=== PATIENT | female | born 1965 | race Caucasian/White ===

== ENCOUNTER 2020-11-08 10:36 | Inpatient (IN) | payer BC ==
[2020-11-08] VITALS (22 sets, daily range): BP systolic 126–189; BP diastolic 58–97
[~2020-11-08] VITALS: Ht 172.7 cm; Wt 122.9 kg
[2020-11-08] MEDS ORDERED: famotidine 20mg tablet PO ONE (10:55)
[2020-11-08] MEDS ORDERED: ceFAZolin inj. 3,000 MG in normal saline 100ml IV soln 100 ML IV ONE (11:08)
[2020-11-08] MEDS ORDERED: ALBU17AE26 INH (11:12)
[2020-11-08] MEDS ORDERED: OXYC5CAP19 PO (11:12)
[2020-11-08] MEDS ORDERED: ringers solution, lacted 1,000 ML IV SCH ×2 (11:12→14:45)
[2020-11-08] MEDS ORDERED: tranexamic acid 650mg tablet PO ONE (11:15)
[2020-11-08] MEDS ORDERED: morphine 4 MG/ML inj SYRINge IV ONE (11:35)
[2020-11-08 12:33] LABS: BASOPHILS % (AUTO) 0.1 % (0-1); EOSINOPHILS % (AUTO) 0.2 % (0-6); LYMPHOCYTES # (AUTO) 1.2 X10'3 (1.1-4.8); LYMPHOCYTES % (AUTO) 9.9 % (21-51); MEAN CORPUSCULAR HEMOGLOBIN 29.7 PG (27.0-31.0); MEAN CORPUSCULAR HGB CONC 33.9 g/dL (33.0-36.5); MEAN CORPUSCULAR VOLUME 87.7 FL (78-98); MEAN PLATELET VOLUME 7.2 FL (7.4-10.4); MONOCYTES # (AUTO) 0.9 X10'3 (0-0.9); MONOCYTES % (AUTO) 7.7 % (2-12); NEUTROPHILS # (AUTO) 9.9 X10'3 (1.8-7.7); NEUTROPHILS % (AUTO) 82.1 % (42-75); PRE OP HEMATOCRIT 36.8 % (35.0-45.0); PRE OP HEMOGLOBIN 12.5 g/dL (12.0-16.0); PRE OP PLATELET COUNT 285 X10'3 (140-440); RED CELL DISTRIBUTION WIDTH 14.6 % (11.5-14.5)
[2020-11-08] MEDS ORDERED: succinylcholine 20mg/ml inj IV ONE (12:42)
[2020-11-08] MEDS ORDERED: propofol inj 20 ML IV ONE (12:42)
[2020-11-08] MEDS ORDERED: LIDOcaine 2% (20mg/ml) 5ml vial ONE (12:42)
[2020-11-08] MEDS ORDERED: ROPIVAcaine 0.5% (5mg/ml) 30ml vial ONE ×2 (12:42→12:56)
[2020-11-08] MEDS ORDERED: ondansetron/PF 4mg/2ml inj ONE (12:42)
[2020-11-08 12:43] LABS: ALBUMIN 3.4 G/DL (3.4-5.0); ALBUMIN/GLOBULIN RATIO 0.8 (1.1-1.5); ALKALINE PHOSPHATASE 65 IU/L (46-116); BLOOD UREA NITROGEN 14 MG/DL (7-18); CALCIUM 8.7 MG/DL (8.5-10.1); CHLORIDE 104 MMOL/L (99-107); CREATININE 0.61 MG/DL (0.40-0.90); PRE OP ALT 31 U/L (30-65); PRE OP ANION GAP 7 (8-16); PRE OP AST 17 U/L (10-37); PRE OP BILIRUB, TOTAL 0.8 MG/DL (0.0-1.0); PRE OP GLUCOSE 127 MG/DL (70-104); PRE OP POTASSIUM 3.6 MMOL/L (3.4-5.1); PRE OP SODIUM 138 MMOL/L (135-145); TOTAL CARBON DIOXIDE 27.3 MMOL/L (24-32); TOTAL PROTEIN 7.6 G/DL (6.4-8.2); eGFR > 90 ML/MIN
[2020-11-08] MEDS ORDERED: cloNIDine hcl/PF 100mcg/ml inj ONE (12:43)
[2020-11-08] MEDS ORDERED: ketorolac trometh. 30mg/ml inj. ONE (12:56)
[2020-11-08] MEDS ORDERED: morphine 4 MG/ML inj SYRINge IV STA (13:11)
[2020-11-08] MEDS ORDERED: fentaNYL/PF 50MCG/1 ML 2ML syringe ONE ×2 (13:57→15:54)
[2020-11-08] MEDS ORDERED: dexamethasone sod phosphate 4mg/ml inj. ONE (14:21)
[2020-11-08] MEDS ORDERED: morphine 4 MG/ML inj SYRINge IV PRN (14:45)
[2020-11-08] MEDS ORDERED: fentaNYL/PF 50MCG/1 ML 2ML syringe IV PRN ×2 (14:45)
[2020-11-08] MEDS ORDERED: morphine 2 MG/ML inj. syringe IV PRN (14:45)
[2020-11-08] MEDS ORDERED: labetalol 20mg/4ml (5mg/ml) syringe IV PRN (14:45)
[2020-11-08] MEDS ORDERED: ondansetron/PF 4mg/2ml inj IV PRN ×2 (14:45→16:25)
[2020-11-08] MEDS ORDERED: hydrALAZINE 20mg/ml inj. IV PRN (14:45)
[2020-11-08] MEDS ORDERED: ROPIVAcaine 0.2% (10 MG/5 ML) BOLUS INJECTION INTERSCALE PRN (14:45)
[2020-11-08] MEDS ORDERED: ePHEDrine 50MG/ML INJ. ONE (15:06)
[2020-11-08] MEDS ORDERED: non-formulary drug (Oxycodone HCl 1 CAP) PO PRN (16:25)
[2020-11-08] MEDS ORDERED: acetaminophen 325mg tablet PO PRN (16:25)
[2020-11-08] MEDS ORDERED: diphenhydrAMINE 25mg capsule PO PRN ×2 (16:25)
[2020-11-08] MEDS ORDERED: HYDROmorphone inj. 0.5 MG/0.5 ML DISP.SYRIN IV PRN (16:25)
[2020-11-08] MEDS ORDERED: oxyCODONE IR 5mg (immed. release) tablet PO PRN (16:25)
[2020-11-08] MEDS ORDERED: HYDROmorphone 1 mg/ml syringe IV PRN (16:25)
[2020-11-08] MEDS ORDERED: magnesium hydroxide 30ml (MOM) UD suspension PO PRN (16:25)
[2020-11-08] MEDS ORDERED: bisacodyl 10mg suppository rectal RC PRN (16:25)
[2020-11-08] MEDS: ROPIVAcaine 0.2%/PF PUMP/bolus 545 ML INTERSCALE SCH (17:13)
--- NOTE | 2020-11-08 19:06 | NUR ---
Report called to receiving nurse. Transferred via BED ON s SENT W/PT TO ROOM 4023 A. COLDFUSION AT BEDSIDE TO RECEIVE PT, BLL, CALL LIGHT GIVEN, SIDE RAILS UP X 2. Special Issues communicated to receiving nurse. YES. Addendum: 11/08/20 at 1917 by Nuzhat Snider RN Amended: Links added.
[2020-11-08] MEDS: acetaminophen 325mg tablet PO SCH (19:54)
[2020-11-08] MEDS ORDERED: vancomycin/NS 1 GM ADD-VANTAGE 250 ML IV SCH (20:00)
[2020-11-08] MEDS ORDERED: sennosides 8.6mg tablet PO SCH (21:00)
[2020-11-08] MEDS: potassium cl 20mEq in 1/2 NS 1,000 ML IV SCH ×2 (21:27→21:35)
[2020-11-08] MEDS: albuterol 2.5 MG/3 ML nebule NEB PRN (21:47)
[2020-11-08] MEDS: oxyCODONE IR 5mg (immed. release) tablet PO PRN (22:37)
--- NOTE | 2020-11-09 | NUR ---
Pts called earlier this evening very upset about the care his was receiving. Apparently, she had texted with her daughter, who was then talking to the dad and he called the nurses station. He was angry that she said she had pushed the call light and it took "45 mins for someone to help me and I ended up peeing on the bed." I spoke with him for a few minutes. I do not know how long the call light was actually on, but I doubt it was 45 mins. During that time, a rapid response was happening at the end of the mccall in the [facility] room and many RNs were assisting. An aide from another unit was called up to help answer lights and I was in the room with one of my other 4 patients when the aide came in and said that Regina had just "chewed her out and refused to be helped by anyone else besides her nurse." I went to the room as soon as I was able to and helped her to the toilet. She didn't realize that she had wet the bed a little and I said not to worry, it happened all the time and went ahead and changed her linens while she was in the bathroom. She was clearly embarrassed. Afterwards, she started sobbing and said she was sorry for the way she acted and she wanted to apologize to the aide, but the aide had already returned to her unit. She said this was "out of character for her and it must be a result of the meds from surgery." She called her and said he "shouldn't have called the nurses station and that she was a big girl and could take care of herself." Pt was very anxious all night long. She did not want to fall asleep because she was worried "she might miss something." She used the call light several times an hour and had a hard time getting comfortable in bed. She was given pain meds for chronic back pain as well as the On Q meds for shoulder pain. She seemed to be ok when I was talking with her one on one, but would get all riled up when talking/texting with family.
[2020-11-09] MEDS: ceFAZolin/D5W- 1GM premix 50 ML IV SCH ×2 (01:03→08:16)
[2020-11-09 02:00] VITALS: BP 138/69
[2020-11-09] MEDS: acetaminophen 325mg tablet PO SCH ×2 (02:00→08:15)
[2020-11-09] MEDS: oxyCODONE IR 5mg (immed. release) tablet PO PRN ×2 (02:01→11:38)
[2020-11-09 06:00] VITALS: BP 140/58
[2020-11-09 06:08] LABS: BASOPHILS % (AUTO) 0 % (0-1); EOSINOPHILS % (AUTO) 0 % (0-6); HEMATOCRIT 32.8 % (35.0-45.0); HEMOGLOBIN 10.9 g/dl (12.0-16.0); LYMPHOCYTES # (AUTO) 0.8 X10'3 (1.1-4.8); LYMPHOCYTES % (AUTO) 6.1 % (21-51); MEAN CORPUSCULAR HEMOGLOBIN 29.6 PG (27.0-31.0); MEAN CORPUSCULAR HGB CONC 33.4 g/dL (33.0-36.5); MEAN CORPUSCULAR VOLUME 88.6 FL (78-98); MEAN PLATELET VOLUME 7.2 FL (7.4-10.4); MONOCYTES % (AUTO) 6.9 % (2-12); NEUTROPHILS # (AUTO) 12.1 X10'3 (1.8-7.7); PLATELET COUNT 274 X10'3 (140-440); RED CELL DISTRIBUTION WIDTH 14.7 % (11.5-14.5); WHITE BLOOD COUNT 13.9 X10'3 (4.5-11.0)
[2020-11-09 06:27] LABS: ANION GAP 7 (8-16); CHLORIDE 104 MMOL/L (99-107); POTASSIUM 3.7 MMOL/L (3.5-5.1); SODIUM 139 MMOL/L (135-145); TOTAL CARBON DIOXIDE 27.6 MMOL/L (24-32)
[2020-11-09] MEDS ORDERED: aspirin 325mg tablet PO SCH (08:30)
[2020-11-09] MEDS: albuterol 2.5 MG/3 ML nebule NEB PRN (08:47)
[2020-11-09 10:00] VITALS: BP 179/77
[2020-11-09] MEDS ORDERED: OXYC-658 PO (11:26)
[2020-11-09] MEDS ORDERED: cyclobenzaprine 10mg tablet PO STA (12:00)
[2020-11-09] MEDS ORDERED: ketorolac trometh. 30mg/ml inj. IV ONE (12:25)
[2020-11-09] MEDS ORDERED: CYCL-392 PO (12:34)
[2020-11-09] MEDS ORDERED: oxyCODONE IR 5mg (immed. release) tablet PO ONE (12:55)
[2020-11-09] MEDS ORDERED: cyclobenzaprine 10mg tablet PO ONE (14:45)
[2020-11-09] MEDS: ROPIVAcaine 0.2%/PF PUMP/bolus 545 ML INTERSCALE SCH (15:48)
[2020-11-10] MEDS ORDERED: acetaminophen 325mg tablet PO PRN (16:25)
== END 2020-11-09 16:05 | disposition home or self-care (01) | DRG 483 ==
LOC: PAS 10:36 → ORTHO 4S 16:22
PROVIDERS: ADMIT Orthopaedic Surgery; ATTEND Orthopaedic Surgery
PROC: 3E0T3BZ Introduction of Anesthetic Agent into Peripheral Nerves and Plexi, Percutaneous Approach (ICD-10-PCS; 2020-11-08)
PROC: 3E0T33Z Introduction of Anti-inflammatory into Peripheral Nerves and Plexi, Percutaneous Approach (ICD-10-PCS; 2020-11-08)
PROC: 0RRJ00Z Replacement of Right Shoulder Joint with Reverse Ball and Socket Synthetic Substitute, Open Approach (ICD-10-PCS; principal; 2020-11-08 13:52)
DX: S42.241A 4-part fracture of surgical neck of right humerus, initial encounter for closed fracture (principal); D62 Acute posthemorrhagic anemia; M19.011 Primary osteoarthritis, right shoulder; M75.21 Bicipital tendinitis, right shoulder; S42.291A Other displaced fracture of upper end of right humerus, initial encounter for closed fracture; W18.39XA Other fall on same level, initial encounter; Y93.89 Activity, other specified; Y92.89 Other specified places as the place of occurrence of the external cause; Y99.8 Other external cause status; Z20.822 Contact with and (suspected) exposure to COVID-19
CPT/HCPCS: 36415; 73030; 80051; 80053; 85025; 87081; 87426; 93005; 94640; 94760; 97110; 97161; 97530; G0378; J0330; J0690; J0735; J1100; J1885; J2001; J2270; J2405; J2704; J2795; J3010; J3370; J3480; J7120

== ENCOUNTER 2020-11-18 13:48 | Emergency (ER) | payer BC ==
[~2020-11-18] VITALS: Ht 170.2 cm; Wt 122.7 kg
[~2020-11-18 13:48] MED LIST: ALBU17AE26 INH; CYCL-392 PO; OXYC-658 PO
[2020-11-18 14:04] VITALS: BP 175/91
[2020-11-18 14:37] LABS: BASOPHILS % (AUTO) 0.5 % (0-1); EOSINOPHILS # (AUTO) 0.1 X10'3 (0-0.9); EOSINOPHILS % (AUTO) 1.7 % (0-6); HEMATOCRIT 35.8 % (35.0-45.0); HEMOGLOBIN 11.8 g/dl (12.0-16.0); MEAN CORPUSCULAR HEMOGLOBIN 29.4 PG (27.0-31.0); MEAN CORPUSCULAR HGB CONC 33.1 g/dL (33.0-36.5); MEAN PLATELET VOLUME 6.5 FL (7.4-10.4); MONOCYTES # (AUTO) 0.5 X10'3 (0-0.9); MONOCYTES % (AUTO) 7.3 % (2-12); NEUTROPHILS # (AUTO) 4.9 X10'3 (1.8-7.7); NEUTROPHILS % (AUTO) 75.5 % (42-75); PLATELET COUNT 363 X10'3 (140-440); RED BLOOD COUNT 4.03 X10'6 (4.20-5.60); RED CELL DISTRIBUTION WIDTH 14.6 % (11.5-14.5); WHITE BLOOD COUNT 6.5 X10'3 (4.5-11.0)
[2020-11-18 14:51] LABS: D-DIMER 2.87 MG/L FEU (0-0.50)
[2020-11-18 15:02] LABS: ALANINE AMINOTRANSFERASE 29 U/L (12-78); ALBUMIN 3.3 G/DL (3.4-5.0); ALBUMIN/GLOBULIN RATIO 0.7 (1.1-1.5); ALKALINE PHOSPHATASE 72 IU/L (46-116); ANION GAP 8 (8-16); ASPARTATE AMINO TRANSFERASE 14 U/L (10-37); BILIRUBIN,TOTAL 0.5 MG/DL (0.1-1.0); BLOOD UREA NITROGEN 10 MG/DL (7-18); BUN/CREATININE RATIO 12.7 (6.6-38.0); CALCIUM 8.6 MG/DL (8.5-10.1); CHLORIDE 105 MMOL/L (99-107); CREATININE 0.79 MG/DL (0.40-0.90); GLUCOSE 122 MG/DL (70-104); POTASSIUM 4.2 MMOL/L (3.5-5.1); SODIUM 142 MMOL/L (135-145); TOTAL CARBON DIOXIDE 29.3 MMOL/L (24-32); TOTAL PROTEIN 7.8 G/DL (6.4-8.2); eGFR 76 ML/MIN
[2020-11-18] MEDS ORDERED: iohexol 350MG/ML 100ml bottle IV ONE (17:32)
[2020-11-18 17:40] LABS: CLARITY,URINE CLEAR (Clear); COLOR,URINE YELLOW (Yellow); GLUCOSE, URINE NEGATIVE (Neg); KETONES,URINE NEGATIVE (Neg); LEUKOCYTE ESTERASE ,URINE NEGATIVE (Neg); NITRITES, URINE NEGATIVE (Neg); OCCULT BLOOD,URINE NEGATIVE (Neg); PH,URINE 7.5 (4.8-8.0); PROTEIN,URINE NEGATIVE (Neg)
[2020-11-18 17:41] LABS: UA COLLECTION TYPE CLN CATCH MIDSTREAM
== END 2020-11-18 18:32 | disposition home or self-care (01) ==
LOC: ER 14:00
DX: R06.02 Shortness of breath (principal); R30.0 Dysuria; R05 Cough; Z96.611 Presence of right artificial shoulder joint; J45.909 Unspecified asthma, uncomplicated; Z98.890 Other specified postprocedural states; Z91.040 Latex allergy status; Z79.899 Other long term (current) drug therapy
CPT/HCPCS: 36415; 71045; 71275; 80053; 81003; 83880; 85025; 85379; 93005; 99285; Q9967

== ENCOUNTER 2024-10-28 09:07 | Inpatient (IN) | payer BC ==
[~2024-10-28] VITALS: Ht 170.2 cm; Wt 120.4 kg
[2024-10-28] VITALS (14 sets, daily range): BP systolic 131–174; BP diastolic 71–84; PULSE 73–83; RESP 13–20; TEMP 97–97.2; O2SAT 93–97
[~2024-10-28 09:07] MED LIST changes: -OXYC-658 PO
--- NOTE | 2024-10-28 09:43 | RADIOLOGY REPORT ---
CHEST RADIOGRAPH Indication: Pain Technique: Frontal and lateral view of the chest was obtained Comparison: None FINDINGS: Lines and Tubes: None Lungs: Left basilar subsegmental atelectasis Pleura: No effusion. No pneumothorax. Cardiomediastinal contours: Unremarkable Bones: Unremarkable IMPRESSION: No evidence of acute disease.
[2024-10-28] MEDS ORDERED: diphenhydrAMINE 25mg capsule PO PRN (09:54)
[2024-10-28] MEDS ORDERED: LORazepam 0.5 MG tablet PO PRN (09:55)
[2024-10-28] MEDS ORDERED: nitroGLYCERIN 0.4mg SUBLingual tab SL PRN (09:55)
[2024-10-28] MEDS ORDERED: normal saline 1,000 ML IV SCH (09:55)
--- NOTE | 2024-10-28 09:58 | ELECTROCARDIOGRAPH REPORT ---
[facility] Test Date: 2024-10-28 Test Time: 09:57:19 Pat Name: NESTOR NOONAN Department: [facility] Patient ID: [id number] Room: [place] [address] Gender: F Security Analyst: ROCHELLE : 1965 Requested By: ALDA MACK Order Number: [id number] Reading MD: Dr. VALENTINO Haq Measurements Intervals Palo Rate: 81 P: 44 NC: 144 QRS: -14 QRSD: 92 T: 74 QT: 383 QTc: 445 Interpretive Statements Sinus rhythm Electronically Signed On 10-28-2024 17:19:[address] VALENTINO Haq Please click the below link to view image of tracing.
[2024-10-28] MEDS ORDERED: DULO-31 PO (10:03)
[2024-10-28] MEDS ORDERED: MAGN400T39 PO (10:08)
[2024-10-28] MEDS ORDERED: MULT-1085 PO (10:08)
[2024-10-28] MEDS ORDERED: METF-1203 PO (10:08)
[2024-10-28] MEDS ORDERED: TIRZ10PE (10:08)
[2024-10-28] MEDS ORDERED: LOSA-416 PO (10:08)
[2024-10-28] MEDS ORDERED: [UNRECOGNIZED DRUG - OTHER] PO (10:09)
[2024-10-28] MEDS ORDERED: DEXTROSE 15 GM of carb/4 tabs (each vial/BOTTLE has 4 tablets) PO PRN ×2 (10:15)
[2024-10-28] MEDS ORDERED: dextrose 50%-water 50ml dispensing syringe IV PRN ×2 (10:15)
[2024-10-28] MEDS ORDERED: glucagon, human recombinant 1mg kit SUBCUT PRN (10:15)
[2024-10-28 10:19] LABS: BASOPHILS % (AUTO) 0.4 % (0-1); EOSINOPHILS # (AUTO) 0.1 X10'3 (0-0.9); EOSINOPHILS % (AUTO) 0.6 % (0-6); HEMATOCRIT 40.5 % (35.0-45.0); HEMOGLOBIN 13.7 g/dl (12.0-16.0); LYMPHOCYTES # (AUTO) 1.6 X10'3 (1.1-4.8); LYMPHOCYTES % (AUTO) 18.5 % (21-51); MEAN CORPUSCULAR HEMOGLOBIN 30.2 PG (27.0-31.0); MEAN CORPUSCULAR HGB CONC 33.8 g/dL (33.0-36.5); MEAN CORPUSCULAR VOLUME 89.5 FL (78-98); MEAN PLATELET VOLUME 7.4 FL (7.4-10.4); MONOCYTES # (AUTO) 0.7 X10'3 (0-0.9); MONOCYTES % (AUTO) 7.8 % (2-12); NEUTROPHILS # (AUTO) 6.3 X10'3 (1.8-7.7); NEUTROPHILS % (AUTO) 72.7 % (42-75); PLATELET COUNT 285 X10'3 (140-440); RED BLOOD COUNT 4.53 X10'6 (4.20-5.60); RED CELL DISTRIBUTION WIDTH 13.5 % (11.5-14.5); WHITE BLOOD COUNT 8.7 X10'3 (4.5-11.0)
[2024-10-28] MEDS ORDERED: LIDOcaine 1% 30ml preserv. free vial ONE (10:27)
[2024-10-28] MEDS ORDERED: fentaNYL/PF 50MCG/1 ML 2ML syringe ONE (10:27)
[2024-10-28] MEDS ORDERED: midazolam 1 mg/ML 2ml injection ONE ×2 (10:27→11:28)
[2024-10-28] MEDS ORDERED: iohexol 350MG/ML 100ml bottle IV ONE ×2 (10:28→11:16)
[2024-10-28] MEDS ORDERED: iohexol 350 MG/ML 50ML vial IV ONE (10:28)
[2024-10-28 10:33] LABS: APTT 29 SECONDS (22-32); PROTHROMBIN TIME 10.5 SECONDS (9.0-12.0)
[2024-10-28 10:44] LABS: ALBUMIN 3.2 G/DL (3.4-5.0); ANION GAP 7 (8-16); BLOOD UREA NITROGEN 9 MG/DL (7-18); BUN/CREATININE RATIO 15.8 (10.0-20.0); CALCIUM 8.6 MG/DL (8.5-10.1); CHLORIDE 107 MMOL/L (99-107); CREATININE 0.57 MG/DL (0.40-0.90); GLUCOSE 113 MG/DL (70-104); POTASSIUM 4.2 MMOL/L (3.5-5.1); PRO BRAIN NATRIURETIC PEPTIDE 34 PG/ML (0-125); SODIUM 140 MMOL/L (135-145); TOTAL CARBON DIOXIDE 25.8 MMOL/L (24-32); eCRCL 105 ML/MIN; eGFR > 90 ML/MIN
[2024-10-28] MEDS ORDERED: diphenhydrAMINE 50 mg/ml inj ONE (11:10)
[2024-10-28] MEDS ORDERED: heparin 25,000 UNIT/250ml bag 250 ML IV ONE (11:16)
[2024-10-28] MEDS ORDERED: tirofiban 12.5mg in NS 250mL 250 ML IV ONE (11:16)
[2024-10-28] MEDS ORDERED: nitroGLYCERIN 500mcg/5mL D5W 5 ML IV ONE (11:26)
[2024-10-28] MEDS ORDERED: heparin 1,000unit/ml 10ml vial 10 ML ONE (11:31)
[2024-10-28] MEDS ORDERED: nitroGLYCERIN-Tridil 50MG/D5W 250 ML IV ONE (11:44)
[2024-10-28] MEDS ORDERED: HYDROmorphone 1 mg/ml syringe ONE ×2 (11:48→12:19)
[2024-10-28] MEDS ORDERED: ticagrelor 90mg tablet ONE (12:02)
[2024-10-28] MEDS: aspirin 81mg tab.chew PO ONE (13:37)
[2024-10-28] MEDS ORDERED: aspirin 81mg tab.chew PO ONE (13:45)
[2024-10-28] MEDS ORDERED: magnesium hydroxide 30ml (MOM) UD suspension PO PRN ×2 (13:50→18:25)
[2024-10-28] MEDS ORDERED: OXAZEpam 15mg capsule PO PRN (13:50)
[2024-10-28] MEDS ORDERED: morphine 10mg/ml inj. IV PRN (13:50)
[2024-10-28] MEDS ORDERED: morphine 4 MG/ML inj SYRINge IV PRN ×2 (13:50)
[2024-10-28] MEDS ORDERED: albuterol 2.5 MG/3 ML nebule NEB PRN (13:50)
[2024-10-28] MEDS ORDERED: HYDROcodone/acetaminophen 10/325mg tab PO PRN (13:50)
[2024-10-28] MEDS ORDERED: proCHLORperazine 10 MG/2 ml inj IV PRN (13:50)
[2024-10-28] MEDS: HYDROcodone/acetaminophen 10/325mg tab PO PRN (13:51)
[2024-10-28] MEDS ORDERED: ondansetron/PF 4mg/2ml inj IV ONE (13:55)
[2024-10-28] MEDS: ondansetron/PF 4mg/2ml inj ONE (13:59)
--- NOTE | 2024-10-28 14:00 | CARDIAC CATH REPORT ---
Cardiology Post Cath Findings Findings Findings: Procedure: Left heart catheterization left ventriculography internal mammary angiography. Left anterior descending PTCA left anterior descending stent. Indication: Anterior wall reversible ischemia frequent daily nitroglycerin use rest pain with nitroglycerin use. 1. Normal left ventriculogram. 2. 99% proximal left anterior descending OREN one flow. 3. PTCA stent left anterior descending OREN three flow postop Recommendation: She had required 2 mg Dilaudid 3 mg Versed 100 mcg fentanyl for back pain. She appears sensitive and we will scream out whenever the blood pressure cuff is inflated on her left arm. Cuff is small for her arm size. BMI 42 internal blood pressure is 140/80 arm blood pressure 200/90. Patient given Brilinta 180 mg in tutorial laboratory supervisor. Intravenous heparin intravenous Aggrastat continued to be shut off in 2 hours by that time Brilinta should be active. Angio-Seal to follow. Requires to stay overnight at least. Out of bed 8 hours post Angio-Seal. If does well then discharge home on Brilinta which undoubtedly her insurance will not cover and I will have to switch to Plavix Lipitor aspirin and he usual home medications. I told her she could restart metformin and Mounjaro tomorrow and later as needed Dr. Vergara kindly accepted the patient for management to during her hospital stay. ALDA MACK MD October 28, 2024 14:00
[2024-10-28] MEDS ORDERED: TICA90TA2 PO (15:35)
[2024-10-28] MEDS ORDERED: ASPI81TA52 PO (15:35)
[2024-10-28] MEDS ORDERED: ATOR20TA PO (15:35)
[2024-10-28] MEDS: normal saline 1000ml 1,000 ML IV SCH ×2 (15:41→18:25)
--- NOTE | 2024-10-28 15:51 | CARDIOLOGY REPORT ---
DATE OF SERVICE: 10/28/2024 DICTATING PHYSICIAN: Toribio Daly MD PROCEDURES: * Left heart catheterization. * Selective left and right coronary arteriography. * Left ventriculography. * Left internal mammary angiography. * Left anterior descending PTCA. * Left anterior descending stent deployment. * Right iliofemoral arteriogram. BRIEF HISTORY/INDICATION: A 59-year-old female, had onset of angina approximately 2-3 months ago with increasing episodes of daily nitroglycerin use. Anterior wall reversible ischemia on nuclear stress testing. She has a BMI of 42. Non-insulin diabetes mellitus, maintained on metformin and Mounjaro. Hypertension, blood pressure cuff not accurate due to arm-cuff mismatch. Bronchospastic lung disease, chronic pain syndrome, and requires future lumbosacral surgery by her history due to a fall. Risks, benefits, and alternatives of diagnostic heart catheterization and potential intervention were discussed with her and she has decided to proceed. Risks included but not restricted to , stroke, myocardial infarction, renal failure, neurologic or vascular complication, bleeding complications, allergic reaction, intervention and its attending complications including emergency coronary bypass grafting. TECHNIQUE: Following the usual sterile preparation and draping, right groin was infiltrated with 10 mL of 1% lidocaine local anesthetic. The patient required 3 mg Versed, 100 mcg of fentanyl, 2 mg of Dilaudid for low back pain, Benadryl 25 intravenously for conscious sedation and anxiolysis. Whenever her blood pressure cuff would inflate, she would cry out in pain. She was reactive to needle puncture, movement of catheter. She tended to keep her left knee bent due to back pain. Selective left and right coronary arteriography was performed with 6-Bruneian femoral left 4, right 4 diagnostic catheters, left ventriculography with 6-Bruneian pigtail catheter, left internal mammary angiography with 6-Bruneian femoral right 4 diagnostic catheter. Catheter exchanges were under fluoroscopic guidance with J-tip guidewire lead. Due to coronary anatomy findings, her symptomatology, intervention was embarked on after it was discussed with her. A 6-Bruneian sheath was required to be upsized to a 7-Bruneian sheath as there was a sheath-catheter mismatch and retained friction from mismatch sizing. Mapping left coronary arteriography was performed with a 6-Bruneian femoral left 4 sidehole guide. There is no left main. A 0.014 BMW wire was positioned to the apical left anterior descending and a 2 mm x 12 mm Mini Trek balloon was positioned in the stenotic segment and inflated to 14 atmospheres. The balloon was deflated and subsequently withdrawn, and a 3.5 mm x 15 mm Xience stent was positioned under fluoroscopy in the stenotic segment and deployed to 14 atmospheres, 5 seconds inflation. Balloon was deflated and withdrawn. Repeat angiography was performed. Right iliofemoral arteriogram was performed. Sheaths were sewn in place. The patient is maintained on intravenous heparin, intravenous Aggrastat, received 10,000 units of heparin during the procedure, received Brilinta 180 mg p.o. at termination of procedure. We will shut off heparin and Aggrastat and apply Angio-Seal after a couple of hours of observation for stability. Bed was arranged. The patient admitted to the hospitalist service. FINDINGS: Blood pressure 150/78 AO, LV 153/9-14. LEFT VENTRICULOGRAM: Ejection fraction is 66%. There is contiguous ostia of the left anterior descending and a dominant left circumflex. There is no left main coronary artery. There is a 99% proximal left anterior descending with OREN 2 flow. It appears OREN 1 in the apical portion. Left circumflex is dominant with large obtuse marginal, posterolateral wraps around the apex and the large posterior descending. There is scattered 15% narrowing throughout. INTERVENTION: A 99% proximal left anterior descending, reduced with predilatation and a stent deployed with consequent 0% residual stenosis, OREN 3 flow. Right iliofemoral arteriogram vessel is adequate for Angio-Seal. RESULTS: * Normal left ventriculogram, ejection fraction of 66%. * Smooth left internal mammary artery. * Left dominant coronary arteries, contiguous left anterior descending and left circumflex ostia. * 99% proximal left anterior descending. * Successful left anterior descending PTCA with stent deployment, OREN 2 flow improved to OREN 3, residual 0% stenosis. * 15% scattered narrowings in dominant left circumflex. * 15% scattered narrowings in minor right coronary artery providing a right ventricular branch. COMMENT: Findings discussed with the patient. Hospital bed arranged. The patient admitted to hospitalist service. Arterial sheath to be removed once acute anticoagulation has partially resolved. Angio-Seal will be used. If stable and ambulating, could be discharged tomorrow. Toribio Daly MD TID: [id number] RECEIPT: [id number] TR/PHILIPPE cc: Robby Fish MD, Hospitalist Program
[2024-10-28] MEDS: losartan 25mg tablet PO ONE (15:56)
[2024-10-28] MEDS: tirofiban 12.5mg in NS 250mL IV SCH (15:57)
[2024-10-28] MEDS ORDERED: magnesium Cl slow-release 64mg tablet PO PRN (18:25)
[2024-10-28] MEDS ORDERED: magnesium sulf-water 4G/100mL 100 ML IV PRN (18:25)
[2024-10-28] MEDS ORDERED: morphine 2 MG/ML inj. syringe IV PRN (18:25)
[2024-10-28] MEDS ORDERED: HYDROcodone/acetaminophen 5mg/325mg tablet PO PRN (18:25)
[2024-10-28] MEDS ORDERED: magnesium sulf-water 2g/50mL 50 ML IV PRN (18:25)
[2024-10-28] MEDS ORDERED: mag hydrox/Alum hydrox/simeth 30ml oral suspension PO PRN (18:25)
[2024-10-28] MEDS ORDERED: ondansetron/PF 4mg/2ml inj IV PRN (18:25)
[2024-10-28] MEDS ORDERED: potassium Cl 20 mEq SR tablet PO PRN ×2 (18:25)
[2024-10-28] MEDS ORDERED: potassium Cl 40MEQ/1/2NS 520ml 520 ML IV PRN (18:25)
--- NOTE | 2024-10-28 18:31 | HISTORY AND PHYSICAL-Residence ---
History & Physical Providers to CC Resident Creating Document: MICKEY GARCIA, RES CC: YAIR BANUELOS MD ~ History of Present Illness Reason for Admit\Complaint: Chest pain and shortness of breaths worsening History of Present Illness A 53-year-old female with a past medical history of HTN, type 2 diabetes mellitus was admitted to the hospital after an elective cardiac catheterization that was done by Dr. Daly this morning. Reportedly patient has a history of gradual worsening of shortness of breaths to the point that she could not even walk for a block over a period of one year. Patient also had intermittent chest pain that would status tightness in the jaw neck and gradually progressed to the chest as stabbing kind of pain with a severity of 10/10 and radiation to the arms with no aggravating factors. Patient denies chest pain on exertion, with no relation to any exerting or contributing factors to the onset of chest pain. There was an episode with the patient had bed down with unbearable chest pain in the parking lot outside her office about two months ago. Patient was referred to the supervisor telephone information by her primary care after that episode. Patient had associated dizziness, palpitations, profuse sweating during episodes of chest pain. Patient can not tell if she has orthopnea she can not lie on her back due to severe back pain since the time she had a fall. Patient endorses paroxysmal nocturnal dyspnea. Patient underwent Lexiscan at [facility] which was positive one month ago. Patient also underwent echo but can not remember the findings or the ejection fraction. Patient also adds that she was diagnosed with COVID one year ago which left her with pulmonary symptoms secondary to residual lung fibrosis. Patient has saddle endorses that she has always been active and healthy athletic but had sustained a fall with injuries to the shoulders and multiple rehab therapies. Allergies: Coded Allergies: latex (Verified Allergy, Unknown, 11/08/20) Home Medications Home Medications Active Lipitor* (Atorvastatin Calcium) 20 Mg Tablet 1 Tab PO DAILY 30 Days Aspirin EC (Aspirin) 81 Mg Tablet.dr 1 Tab PO DAILY 30 Days Brilinta (Ticagrelor) 90 Mg Tablet 1 Tab PO Q12H 30 Days Reported [Miralax Gummies] 1 Tab.chew PO DAILY Magnesium (Magnesium Oxide) 400 Mg Magnesium Tablet 1 Tab PO DAILY 30 Days NEEDED Multi Vitamin Daily (Multivitamin) 1 Each Tablet 1 Tab PO DAILY 30 Days Jose Cruzundustin (Tirzepatide) 10 Mg/0.5 Ml Pen.injctr Q7D Metformin HCl 500 Mg Tablet 1 Tab PO Q12H 30 Days Cozaar* (Losartan Potassium) 50 Mg Tablet 1 Tab PO DAILY 30 Days Cymbalta (Duloxetine HCl) 30 Mg Capsule. 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 Fish is her primary care doctor Dr. Daly-supervisor telephone information Denies smoking, alcohol, marijuana, illicit drugs Uses cane intermittently when she has pain in her back Alcohol Use: None Drug Use: None Lives with: Spouse Lives In: Home ROS ROS All other systems reviewed in full and negative except for the pertinent positives mentioned in the HPI Exam Vitals: Vital Signs Date Time Temp Pulse Resp B/P (MAP) Pulse Ox O2 Delivery O2 Flow Rate FiO2 10/28/24 15:16 15 10/28/24 13:30 77 149/78 96 Room Air General: General: Morbidly obese woman, Alert, awake, irritable, oriented, not in acute distress HEENT: PERRLA, EOMI, no icterus, pallor, lymphadenopathy, carotid bruit Respiratory system: Bilateral vesicular breath sounds heard, no adventitious breath sounds CVS: S1-S2 heard, no murmurs/rubs/gallop GI: Soft, nontender, no organomegaly, no guarding/rigidity, bowel sounds present Neuro: No focal neurological deficits present Extremities: No erythema, bleeding, hematoma formation of the access site of the right thigh, No edema cyanosis clubbing Musculoskeletal: No deformities Skin: Warm and dry Psych: Normal mood and affect, irritable Diagnostic Data Last Recorded Lab Results: 10/28/24 1010 10/28/24 1010 Diagnostic Data: Laboratory Tests Test 10/28/24 10:10 Prothrombin Time 10.5 SECONDS (9.0-12.0) INR International Normalized Ratio 1.0 INR Activated Partial Thromboplast Time 29 SECONDS (22-32) Coagulation Comments Advance Care Planning Advanced Care plannin - 30 Minutes (I spent 20 minutes discussing various resuscitative measures and the patient decided to be full code. Patient also stated that her has been we will be POA in situations where she will not be able to make decisions for herself) Additional Plan Assessment: A 59-year-old female with past medical history of HTN, asthma, diabetes mellitus type 2 underwent elective cardiac catheterization with stent placement in the LAD on 10/28/[address] Daly. Patient is consulted for medical management for the above. Plan: Angina pectoris CAD status post stent placement in LAD on 10/28/2024 Elective procedure EKG shows normal sinus rhythm Lexiscan positive one month ago at [facility] Pending echo Continue aspirin 81 mg, Brilinta 90 mg GDM T: Carvedilol 3.25 mg b.i.d., losartan 50 mg p.o. daily Nitroglycerin 0.4 mg Q 5 minutes p.r.n. for chest pain IV normal saline at 75 cc/hour Hypertension Continue losartan 50 mg p.o. daily Continue to monitor vitals Hyperlipidemia Continue atorvastatin Follow up with lipid panel Type 2 DM Follow up with A1c On low-dose sliding scale insulin Asthma not in acute exacerbation Duo nebs q.4 p.r.n. Morbid obesity Possible sleep apnea Outpatient follow up for sleep study Code status: Full code Diet: Heart healthy Anticoagulation: Aspirin, Brilinta DVT prophylaxis: SCD Disposition: Admit to PCU, continue to monitor vitals, follow up with echo, lipid panel and A1c Mickey Garcia MD Internal Medicine, PGY 1 Date of Service: October 28, 2024 Billing Provider: YAIR BANUELOS MD, SIVA, RES October 28, 2024 18:31
[2024-10-28] MEDS: docusate sod 100mg capsule PO SCH ×2 (19:25→19:26)
[2024-10-28] MEDS: cyclobenzaprine 10mg tablet PO PRN (19:47)
[2024-10-28] MEDS: carVEDilol 3.125mg tablet PO SCH (19:48)
[2024-10-28] MEDS: ticagrelor 90mg tablet PO SCH (19:48)
[2024-10-28] MEDS: K and/or MAG REPLACEMENT MC SCH (20:00)
[2024-10-28] MEDS ORDERED: ticagrelor 90mg tablet PO SCH (20:00)
[2024-10-28 20:42] LABS: BASOPHILS % (AUTO) 0.4 % (0-1); EOSINOPHILS % (AUTO) 0.2 % (0-6); HEMATOCRIT 38.9 % (35.0-45.0); HEMOGLOBIN 13.3 g/dl (12.0-16.0); LYMPHOCYTES # (AUTO) 2.1 X10'3 (1.1-4.8); LYMPHOCYTES % (AUTO) 17.2 % (21-51); MEAN CORPUSCULAR HEMOGLOBIN 30.3 PG (27.0-31.0); MEAN CORPUSCULAR HGB CONC 34.1 g/dL (33.0-36.5); MEAN CORPUSCULAR VOLUME 88.9 FL (78-98); MEAN PLATELET VOLUME 7.4 FL (7.4-10.4); MONOCYTES # (AUTO) 0.8 X10'3 (0-0.9); MONOCYTES % (AUTO) 6.6 % (2-12); NEUTROPHILS # (AUTO) 9.3 X10'3 (1.8-7.7); NEUTROPHILS % (AUTO) 75.6 % (42-75); PLATELET COUNT 274 X10'3 (140-440); RED BLOOD COUNT 4.37 X10'6 (4.20-5.60); RED CELL DISTRIBUTION WIDTH 14.2 % (11.5-14.5); WHITE BLOOD COUNT 12.3 X10'3 (4.5-11.0)
[2024-10-28 20:49] LABS: ANION GAP 7 (8-16); BLOOD UREA NITROGEN 7 MG/DL (7-18); BUN/CREATININE RATIO 12.1 (10.0-20.0); CALCIUM 8.2 MG/DL (8.5-10.1); CHLORIDE 101 MMOL/L (99-107); CREATININE 0.58 MG/DL (0.40-0.90); GLUCOSE 105 MG/DL (70-104); POTASSIUM 4.5 MMOL/L (3.5-5.1); SODIUM 138 MMOL/L (135-145); TOTAL CARBON DIOXIDE 30.1 MMOL/L (24-32); eCRCL 103 ML/MIN; eGFR > 90 ML/MIN
[2024-10-28 20:50] LABS: HEMOGLOBIN A1C 5.8 % (4.5-6.2)
[2024-10-28] MEDS: INSULIN LISPRO 100 UNIT/ML INSULN.PEN MULTI-DOSE SQ SCH (21:00)
[2024-10-28] MEDS: acetaminophen 325mg tablet PO PRN (22:05)
[2024-10-29 02:00] VITALS: BP 117/56; PULSE 81; RESP 16; TEMP 97; O2SAT 95
[2024-10-29 02:10] LABS: BILIRUBIN,URINE NEGATIVE (Neg); CLARITY,URINE CLEAR (Clear); COLOR,URINE YELLOW (Yellow); GLUCOSE, URINE NEGATIVE (Neg); KETONES,URINE NEGATIVE (Neg); LEUKOCYTE ESTERASE ,URINE SMALL (Neg); NITRITES, URINE NEGATIVE (Neg); OCCULT BLOOD,URINE MODERATE (Neg); PROTEIN,URINE NEGATIVE (Neg)
[2024-10-29 02:19] LABS: UA COLLECTION TYPE NON-SPECIFIED
[2024-10-29 02:21] LABS: MUCUS STRANDS FEW /LPF (Neg); SQUAMOUS EPITHELIAL CELL,UR FEW /LPF (FEW)
[2024-10-29 02:22] LABS: BACTERIA,URINE NONE SEEN /HPF (Neg); RBC,URINE 20-50 /HPF (0-2)
[2024-10-29 06:00] VITALS: BP 106/86; PULSE 72; RESP 12; TEMP 97.6; O2SAT 96
[2024-10-29 06:30] VITALS: BP 132/57; PULSE 89; RESP 18
[2024-10-29] MEDS: PERFLUTREN PROTEIN-A MICROSPHR (Optison) 0.22 MG/ML 3ML VIAL IV ONE (07:41)
[2024-10-29 08:22] LABS: BASOPHILS % (AUTO) 0.3 % (0-1); EOSINOPHILS # (AUTO) 0.1 X10'3 (0-0.9); EOSINOPHILS % (AUTO) 0.9 % (0-6); HEMATOCRIT 39.2 % (35.0-45.0); HEMOGLOBIN 13.4 g/dl (12.0-16.0); LYMPHOCYTES # (AUTO) 2.1 X10'3 (1.1-4.8); LYMPHOCYTES % (AUTO) 18.8 % (21-51); MEAN CORPUSCULAR HEMOGLOBIN 30.4 PG (27.0-31.0); MEAN CORPUSCULAR HGB CONC 34.2 g/dL (33.0-36.5); MEAN CORPUSCULAR VOLUME 88.8 FL (78-98); MEAN PLATELET VOLUME 7.1 FL (7.4-10.4); MONOCYTES # (AUTO) 0.9 X10'3 (0-0.9); PLATELET COUNT 306 X10'3 (140-440); RED BLOOD COUNT 4.41 X10'6 (4.20-5.60); RED CELL DISTRIBUTION WIDTH 13.9 % (11.5-14.5); WHITE BLOOD COUNT 11.1 X10'3 (4.5-11.0)
[2024-10-29 08:39] LABS: ALBUMIN 3.2 G/DL (3.4-5.0); ANION GAP 7 (8-16); BLOOD UREA NITROGEN 7 MG/DL (7-18); CALCIUM 8.7 MG/DL (8.5-10.1); CHLORIDE 102 MMOL/L (99-107); CHOL/HDL RATIO 3.6 (0.00-4.99); CHOLESTEROL 157 MG/DL (0-200); GLUCOSE 102 MG/DL (70-104); HDL CHOLESTEROL 44 MG/DL (35-60); LDL CHOLESTEROL 93 MG/DL (50-100); MAGNESIUM 2.1 MG/DL (1.5-2.4); SODIUM 138 MMOL/L (135-145); TOTAL CARBON DIOXIDE 29.5 MMOL/L (24-32); TRIGLYCERIDES 106 MG/DL (20-135); eCRCL 85 ML/MIN; eGFR 86 ML/MIN
[2024-10-29] MEDS ORDERED: acetaminophen 325mg tablet PO PRN (10:05)
[2024-10-29] MEDS: losartan 50mg tablet PO SCH (10:20)
[2024-10-29] MEDS: duloxetine 30mg CAPSULE.DR PO SCH (10:21)
[2024-10-29] MEDS: multivitamins, therapeutics tablet PO SCH (10:21)
[2024-10-29] MEDS: magnesium oxide 400mg tablet PO SCH (10:21)
[2024-10-29] MEDS: atorvastatin 20mg tablet PO SCH (10:22)
[2024-10-29 11:00] VITALS: BP 130/64; PULSE 80; RESP 18; TEMP 97.7; O2SAT 94
[2024-10-29] MEDS: CefTRIAXone/D5W-Rocephin 1gm 50 ML IV SCH (12:03)
[2024-10-29] MEDS ORDERED: CEFD300C3 PO (13:10)
[2024-10-29] MEDS ORDERED: ATOR20TA PO (13:10)
[2024-10-29] MEDS ORDERED: NITR0.4T51 SL (13:10)
[2024-10-29] MEDS ORDERED: CARV-164 PO (13:10)
[2024-10-29] MEDS ORDERED: LACT1CAP26 PO (13:10)
--- NOTE | 2024-10-29 17:32 | DISCHARGE SUMMARY-Residence ---
Discharge Summary Providers to CC Resident Creating Document: MICKEY ESCOBAR, RES CC: YAIR BANUELOS MD ~ Discharge Summary Assessment A 59-year-old female with past medical history of HTN, asthma, diabetes mellitus type 2 underwent elective cardiac catheterization with stent placement in the LAD on 10/28/[address] Daly. Patient is consulted for medical management for the above. Admission Diagnosis: Class 3 angina pectoris coronary stent placed Hospital Course DATE OF ADMISSION: 10/28/24 DATE OF DISCHARGE: 10/29/24 Discharge Diagnosis\Comment: Angina pectoris CAD status post stent placement in LAD Elective procedure Hypertension Hyperlipidemia Type 2 DM Asthma not in acute exacerbation Morbid obesity Possible sleep apnea Operations\Procedures: Cardiac catheterization and stent placement Consultants: Dr. Daly (corn chip maker) Complications: None Condition on DC: Stable New Medications: Aspirin (Aspirin EC) 81 Mg Tablet.dr 1 TAB PO DAILY for 30 Days, #30 TAB Atorvastatin Calcium* (Lipitor*) 20 Mg Tablet 2 TAB PO DAILY for 30 Days, #60 TAB Cefdinir* (Cefdinir*) 300 Mg Capsule 1 CAP PO Q12H for 7 Days, #14 CAP Lactobacillus Rhamnosus (Culturelle) 10 Billion Cell Capsule 1 CAP PO BID for 30 Days, #60 CAP 0 Refills Ticagrelor (Brilinta) 90 Mg Tablet 1 TAB PO Q12H for 30 Days, #60 TAB 0 Refills Carvedilol (Carvedilol) 3.125 Mg Tablet 3.125 MG PO BID for 30 Days, #60 TAB Nitroglycerin SL* (Nitrostat SL*) 0.4 Mg Tablet 0.4 MG SL Q5MIN PRN for Chest pain Q5min PRNx3-call MD for 30 Days, #30 TAB Continued Medications: Albuterol (Albuterol) 17 Gm Aerosol 2 PUFFS INH Q4H PRN for SOB or wheezing Duloxetine HCl (Cymbalta) 30 Mg Capsule.dr 1 CAP PO DAILY for 30 Days, #30 CAP 0 Refills Losartan* (Cozaar*) 50 Mg Tablet 1 TAB PO DAILY for 30 Days, #30 TAB Magnesium Oxide (Magnesium) 400 Mg Magnesium Tablet 1 TAB PO DAILY for 30 Days, #60 TAB 0 Refills NEEDED Metformin HCl (Metformin HCl) 500 Mg Tablet 1 TAB PO Q12H for 30 Days, #60 TAB [Miralax Gummies] () 1 TAB.CHEW PO DAILY Multivitamin (Multi Vitamin Daily) 1 Each Tablet 1 TAB PO DAILY for 30 Days, #30 TAB 0 Refills Tirzepatide (Mounjaro) 10 Mg/0.5 Ml Pen.injctr Q7D Discharge Summary: A 53-year-old female with a past medical history of hypertension, hyperlipidemia, type 2 diabetes mellitus held experienced classic chest pain i ndicating angina pectoris, positive Lexiscan a month ago at [facility] and consulted Dr. Daly's outpatient. Patient opted for elective cardiac catheterization. And therefore the medical team was consulted after cardiac catheterization and stent placement in LAD on 10/28/[address] Daly. Patient is independent at mobility at baseline. All other medical conditions were manag ed as per home medications. Patient was also found to have symptomatic UTI with positive findings on urinalysis. Patient was started on appropriate antibiotics. The patient is hemodynamically stable and the site of access of cardiac catheterization is normal without erythema, hematoma or active bleeding. Patient is hemodynamically stable at the time of discharge . Physical examination at discharge: General: Morbidly obese woman, Alert, awake, irritable, oriented, not in acute distress HEENT: PERRLA, EOMI, no icterus, pallor, lymphadenopathy, carotid bruit Respiratory system: Bilateral vesicular breath sounds heard, no adventitious breath sounds CVS: S1-S2 heard, no murmurs/rubs/gallop GI: Soft, nontender, no organomegaly, no guarding/rigidity, bowel sounds present Neuro: No focal neurological deficits present Extremities: No erythema, bleeding, hematoma formation of the access site of the right thigh, No edema cyanosis clubbing Musculoskeletal: No deformities Skin: Warm and dry Labs at discharge: WBC: 11.1, H/H: 13.4/39.2, platelet count: 306 Sodium: 138, potassium: Four, BUN: Seven, creatinine: 0.70 Imaging: Chest x-ray: No evidence of acute disease. Echo: Overall LVEF is 60-65%. Discharge medications can be found above patient is discharged home with the following recommendations: Follow up with primary care within two weeks of discharge Follow up with Dr. Daly (corn chip maker) within two weeks of discharge Please maintain compliance with aspirin and Brilinta for at least one year, per recommendations of the corn chip maker We gave you antibiotics for seven days in view of your UTI, please maintain compliance We gave you Culturelle (probiotic), please maintain compliance You can use nitroglycerin sublingual Q 5 minutes for 3 times when you have chest pain Return to ER or call 911 in view of sudden onset of chest pain, shortness of breath, palpitations, dizziness, sweating *Problems/Diagnosis: (1) UTI (urinary tract infection) (2) CAD (coronary artery disease) (3) Angina pectoris Total Time Spent on D/C: > 30 Minutes Date of Service: October 29, 2024 Billing Provider: YAIR BANUELOS MD, SIVA, RES October 29, 2024 17:32
--- NOTE | 2024-10-29 18:07 | CARDIOLOGY REPORT ---
APPROVED REPORT EXAM: Comprehensive 2D, Doppler, and color-flow Echocardiogram. Patient Location: 3022 A Blood Pressure: 149/78 mmHg Heart Rate: 72 bpm Rhythm: Sinus Rhythm Indications Coronary Artery Disease S/P Stent X 1 (10/28/2024 [facility]) Hypertension Diabetes Mellitus II Chest Pain Shortness of Breath Manager Transfer: Avinash Daly MD Previous echo: None 2D Dimensions RVDd 3.9 cm LA Diam4.0 cm IVSd 1.2 (0.7-1.1cm) LVDd 5.2 cm PWd 1.2 (0.7-1.1cm) IVSs 1.7 (0.8-1.2cm) RA Minor4.7 cmLVDs 3.3 (2.5-4.0cm) PWs 1.7 (0.8-1.2cm) LVOT Diameter 2.17 (1.8-2.4cm) LVEF(%) 66.3 (>50%) IVC 22.53 mm FS (%) 36.8 % SV 86.1 ml CO 3.1 L/min M-Mode Dimensions RVDd 2.80 (2.1-3.2cm) Left Atrium(MM) 3.87 (2.5-4.0cm) IVSd 1.29 (0.7-1.1cm) LVDd 4.06 (4.0-5.6cm) Aortic Root 2.97 (2.2-3.7cm) PWd 1.22 (0.7-1.1cm) Aortic Cusp Exc 2.22 (1.5-2.0cm) IVSs 1.70 cm MV EPSS 0.4 (<0.5cm) LVDs 2.84 (2.0-3.8cm) FS (%) 30 % PWs 1.47 cm ESV(Teich) 30.6 ml LVEF(%) 58 (>50%) Aortic Valve AoV Peak Bud. 128.3 cm/s AoV VTI 26.4 cm AO Peak GR. 6.6 mmHg AO Mean GR. 4 mmHg LVOT VTI 24.80 cm LVOT Peak Bud. 115.3 cm/s TAYO(VTI)/BSA 3.48 cm2/m2 TAYO (VTI) 3.48 cm2 Mitral Valve MV E Velocity 79.5 cm/s MV Peak Gr. 2 mmHg MV DECEL TIME 248 ms MV A Velocity 83.0 cm/s MV Mean Gr. 1 mmHg MV PHT 68 ms E/A Ratio 1.0 MVA (PHT) 3.24 cm2 MV VMax78.0 cm/sMV VMean53.6 cm/s MVA VTI4.21 cm2MV VTI21.9 cm TDI Medial E' P. V 12.55 cm/s E/Medial E' 6.3 Tricuspid Valve TR P. Velocity 230 cm/s RAP ESTIMATE 15 mmHg TR Peak Gr. 21 mmHg RVSP 36 mmHg Pulmonary Vein S1 Velocity 60.5 cm/s D2 Velocity 50.0 cm/s PVa Kixrprrw77.1 cm/s PVa [id number] msec LEFT VENTRICLE Normal LV size and function. Mild concentric hypertrophy. Overall LVEF is 60-65%. RIGHT VENTRICLE Right ventricle is mild to moderately dilated with normal function. Estimated PA systolic pressure is 36 mmHg. ATRIA The left atrium size is normal. AORTIC VALVE Trileaflet AV appears sclerotic without stenosis or insufficiency. MITRAL VALVE Mild MV annular thickening without stenosis. Trace regurgitation. TRICUSPID VALVE TV appears structurally normal with trace regurgitation. PULMONIC VALVE Normal PV without stenosis, physiologic insufficiency. GREAT VESSELS The aortic root is normal in size. IVC is dilated and collapses less than 50% with inspiration. PERICARDIUM Normal pericardium. No pericardial effusion seen. Epicardial fat pad is present. Other Information Study Quality: Adequate Conclusion Overall LVEF is 60-65%. Normal LV size and function. Mild concentric hypertrophy. Right ventricle is mild to moderately dilated with normal function. Estimated PA systolic pressure is 36 mmHg. Trileaflet AV appears sclerotic without stenosis or insufficiency. Mild MV annular thickening without stenosis. Trace regurgitation. TV appears structurally normal with trace regurgitation. The aortic root is normal in size. Normal pericardium. No pericardial effusion seen. Epicardial fat pad is present.
[2024-10-29] MEDS ORDERED: aspirin 81mg, enteric-coated 1 TAB TABLET.DR PO SCH (20:00)
[2024-10-31] MEDS ORDERED: metFORMIN 500mg tablet PO SCH (08:00)
== END 2024-10-29 15:49 | disposition home or self-care (01) | DRG 322 ==
LOC: SSTAY O 09:07 → PAS IN 12:36 → PCU 3S 17:30
PROVIDERS: ADMIT Family Medicine; ATTEND Family Medicine
PROC: 027034Z Dilation of Coronary Artery, One Artery with Drug-eluting Intraluminal Device, Percutaneous Approach (ICD-10-PCS; principal; 2024-10-28)
PROC: 4A023N7 Measurement of Cardiac Sampling and Pressure, Left Heart, Percutaneous Approach (ICD-10-PCS; 2024-10-28)
PROC: B2111ZZ Fluoroscopy of Multiple Coronary Arteries using Low Osmolar Contrast (ICD-10-PCS; 2024-10-28)
PROC: B2151ZZ Fluoroscopy of Left Heart using Low Osmolar Contrast (ICD-10-PCS; 2024-10-28)
PROC: B41F1ZZ Fluoroscopy of Right Lower Extremity Arteries using Low Osmolar Contrast (ICD-10-PCS; 2024-10-28)
DX: I25.119 Atherosclerotic heart disease of native coronary artery with unspecified angina pectoris (principal); Z68.41 Body mass index [BMI] 40.0-44.9, adult; N39.0 Urinary tract infection, site not specified; I10 Essential (primary) hypertension; J45.909 Unspecified asthma, uncomplicated; E66.01 Morbid (severe) obesity due to excess calories; G47.30 Sleep apnea, unspecified; E11.9 Type 2 diabetes mellitus without complications; Z79.82 Long term (current) use of aspirin; Z79.84 Long term (current) use of oral hypoglycemic drugs; Z79.899 Other long term (current) drug therapy; Z91.040 Latex allergy status
CPT/HCPCS: 93306; 93458; C9600; 36415; 71046; 80048; 80061; 81001; 82948; 83036; 83605; 83735; 83880; 84484; 85025; 85610; 85730; 87040; 87081; 87088; 93005; 99152; 99153; A4314; A6258; A6449; C1725; C1751; C1769; C1874; C1894; G0378; J0696; J1171; J1200; J1644; J1815; J2003; J2250; J2405; J3010; J3246; J3490; J7030; J7040; Q9967